=== PATIENT | female | born 1960 | race Asian ===

== ENCOUNTER 2018-05-16 05:52 | Day surgery (SDC) | payer OTHER ==
[2018-05-16] MEDS ORDERED: FENTAnyl 50 MCG/ML VIAL (07:44)
[2018-05-16] MEDS ORDERED: MIDAZOLAM 1 MG/ML 2 ML INJ (07:44)
[2018-05-16] MEDS ORDERED: PROPOFOL 20 ML (14:26)
== END 2018-05-16 16:55 | disposition home or self-care (01) ==
LOC: GIL 05:52
DX: K21.0 Gastro-esophageal reflux disease with esophagitis (principal); K29.60 Other gastritis without bleeding; K44.9 Diaphragmatic hernia without obstruction or gangrene
CPT/HCPCS: 43239; 88305